=== PATIENT | female | born 1940 | race Caucasian/White ===

== ENCOUNTER 2023-02-25 09:27 | Inpatient (IN) | payer MEDICARE ==
[2023-02-25 10:10] LABS: Bacteria/HPF 4+ HPF (None Seen); Bilirubin Negative (Negative); Blood, Urine 2+ (Negative); Clarity Turbid (Clear); Glucose, Urine (Dipstick) Normal (Negative); Ketone, Urine Negative (Negative); Leukocyte 500 Leu/uL (Negative); Nitrite Negative (Negative); Protein, Urine (Dipstick) 20 mg/dL (Neg-Trace); Specific Gravity, Urine 1.011 (1.002-1.036); Squamous Epithelial 0-3 HPF (0-3); Urobilinogen Normal mg/dL (Less than 2); WBC/HPF Greater than 50 HPF (0-3)
[2023-02-25 10:17] LABS: #Eosinphils 0.2 thou/uL (0.0-0.7); #Lymphocytes 1.6 thou/uL (1.20-3.40); #Monocytes 0.5 thou/uL (0.11-0.59); #Neutrophils 6.6 thou/uL (1.40-6.50); %Basophils 0.3 % (0.0-1.0); %Eosinophils 2.4 % (0.0-10.0); %Lymphocytes 17.7 % (21.0-51.0); %Monocytes 5.7 % (0.0-10.0); Hemoglobin 11.4 g/dL (12.0-16.0); Mean Corpuscular HGB CONC 34.4 g/dL (32.0-36.0); Mean Corpuscular Hemoglobin 31.5 pg (27.0-31.0); Mean Corpuscular Volume 91.4 fl (78.0-98.0); Mean Platelet Volume 6.4 fL (7.4-10.4); Platelet Count 341 10x3/uL (130-400); RBC Distribution Width 13.4 % (11.5-14.5); Red Blood Cell (RBC) Count 3.61 mill/uL (4.20-5.40); White Blood Cell (WBC) Count 8.9 10x3/uL (4.8-10.8)
[2023-02-25 10:40] LABS: ALT (SGPT) 8 U/L (8-55); AST (SGOT) 10 U/L (5-34); Albumin 3.2 g/dL (3.4-4.8); Alkaline Phosphatase 111 U/L (40-110); Anion Gap 16 mmol/L (10-20); BUN (Urea Nitrogen) 30 mg/dL (9.8-20.1); Bilirubin, Total 0.3 mg/dL (0.2-1.2); Calc. Creatinine Clearance 0 mL/min (70-130); Carbon Dioxide 21 mmol/L (23-31); Chloride 104 mmol/L (98-107); Estimated GFR 33; Globulin 3.6 g/dL (2.4-3.5); Glucose 103 mg/dL (83-110); Potassium 3.9 mmol/L (3.5-5.1); Protein, Total 6.8 g/dL (5.8-8.1); Sodium 137 mmol/L (136-145)
[2023-02-25 11:01] LABS: CKMB 1.2 ng/mL (0-6.6)
[2023-02-25] MEDS ORDERED: methylPREDNISolone Sod Succ 40 MG VIAL ONE (11:55)
[2023-02-25] MEDS ORDERED: Cefepime 2 GM VIAL ONE (11:55)
[2023-02-25] MEDS ORDERED: Famotidine/PF 20 mg/2ml Vial ONE (11:55)
[2023-02-25] MEDS ORDERED: diphenhydrAMINE 50 MG/ML VIAL ONE (11:55)
[2023-02-25] MEDS ORDERED: Iopamidol 370 76% 100 ML VIAL ONE (12:17)
[2023-02-25] MEDS ORDERED: VANCOMYCIN 2 GRAM/500 ML BAG 2 GM in Premix Bag 1 BAG IVPB SCH (13:15)
[2023-02-25] MEDS ORDERED: Ondansetron PF 4 MG/2 ML Vial ONE (13:46)
[2023-02-25] MEDS ORDERED: Lidocaine 1% w/Epinephrine 1:100K 20 ML VIAL ONE (14:34)
[2023-02-25] MEDS ORDERED: Ondansetron PF 4 MG/2 ML Vial IVP PRN (15:16)
[2023-02-25 16:35] LABS: Troponin I 0.049 ng/mL (< 0.028)
[2023-02-25 17:19] VITALS: BMI 38.9
[2023-02-25] MEDS: Sodium Chloride 0.9% 1,000 ML IV SCH (17:41)
[2023-02-25] MEDS: HYDROcodone/Acetaminophen 10/325 mg Tablet PO PRN (18:34)
[2023-02-25] MEDS: Acetaminophen 325 MG TAB PO PRN (20:29)
[2023-02-25] MEDS: Montelukast Sodium 10 mg Tablet PO SCH (20:29)
[2023-02-25] MEDS: Latanoprost 0.005% Ophth Soln 2.5 ml Bottle EA EYE SCH (20:39)
[2023-02-26] MEDS: Acetaminophen 325 MG TAB PO PRN ×3 (00:52→17:27)
[2023-02-26] MEDS: Levothyroxine Sodium 125 MCG TAB PO SCH (05:24)
[2023-02-26] MEDS: Sodium Chloride 0.9% 1,000 ML IV SCH ×4 (05:24→23:14)
[2023-02-26 06:11] LABS: #Lymphocytes 1.1 thou/uL (1.20-3.40); #Monocytes 0.2 thou/uL (0.11-0.59); #Neutrophils 6.6 thou/uL (1.40-6.50); %Basophils 0.1 % (0.0-1.0); %Eosinophils 0.1 % (0.0-10.0); %Lymphocytes 14.3 % (21.0-51.0); %Monocytes 3.1 % (0.0-10.0); %Neutrophils 82.4 % (42.0-75.0); Hemoglobin 10.3 g/dL (12.0-16.0); Mean Corpuscular HGB CONC 31.9 g/dL (32.0-36.0); Mean Corpuscular Hemoglobin 29.6 pg (27.0-31.0); Mean Corpuscular Volume 92.9 fl (78.0-98.0); Mean Platelet Volume 6.3 fL (7.4-10.4); Platelet Count 341 10x3/uL (130-400); RBC Distribution Width 13.3 % (11.5-14.5); Red Blood Cell (RBC) Count 3.46 mill/uL (4.20-5.40)
[2023-02-26 06:33] LABS: Anion Gap 12 mmol/L (10-20); BUN (Urea Nitrogen) 28 mg/dL (9.8-20.1); Calc. Creatinine Clearance 50 mL/min (70-130); Calcium 9.6 mg/dL (7.8-10.44); Carbon Dioxide 22 mmol/L (23-31); Chloride 105 mmol/L (98-107); Estimated GFR 36; Glucose 134 mg/dL (83-110); Potassium 4.1 mmol/L (3.5-5.1); Sodium 135 mmol/L (136-145)
[2023-02-26] MEDS: Lisinopril 20 MG TAB PO SCH (08:16)
[2023-02-26] MEDS: Aspirin 81 mg Enteric Coated Tablet PO SCH (08:17)
[2023-02-26] MEDS: Vancomycin 1 GM in Premix Bag 1 BAG IVPB SCH (12:33)
[2023-02-26] MEDS: Montelukast Sodium 10 mg Tablet PO SCH (20:18)
[2023-02-26] MEDS: Latanoprost 0.005% Ophth Soln 2.5 ml Bottle EA EYE SCH (20:22)
[2023-02-27] MEDS: Levothyroxine Sodium 125 MCG TAB PO SCH (05:49)
[2023-02-27] MEDS: Sodium Chloride 0.9% 1,000 ML IV SCH ×2 (05:50→13:19)
[2023-02-27 06:28] LABS: #Eosinphils 0.4 thou/uL (0.0-0.7); #Lymphocytes 1.7 thou/uL (1.20-3.40); #Monocytes 0.6 thou/uL (0.11-0.59); #Neutrophils 5.7 thou/uL (1.40-6.50); %Basophils 0.5 % (0.0-1.0); %Eosinophils 4.4 % (0.0-10.0); %Lymphocytes 20.6 % (21.0-51.0); %Monocytes 6.7 % (0.0-10.0); %Neutrophils 67.8 % (42.0-75.0); Hemoglobin 10.5 g/dL (12.0-16.0); Mean Corpuscular HGB CONC 31.7 g/dL (32.0-36.0); Mean Corpuscular Hemoglobin 29.7 pg (27.0-31.0); Mean Corpuscular Volume 93.7 fl (78.0-98.0); Mean Platelet Volume 6.6 fL (7.4-10.4); Platelet Count 306 10x3/uL (130-400); RBC Distribution Width 13.4 % (11.5-14.5); Red Blood Cell (RBC) Count 3.53 mill/uL (4.20-5.40); White Blood Cell (WBC) Count 8.4 10x3/uL (4.8-10.8)
[2023-02-27 06:46] LABS: Anion Gap 12 mmol/L (10-20); BUN (Urea Nitrogen) 27 mg/dL (9.8-20.1); Calc. Creatinine Clearance 61 mL/min (70-130); Calcium 9.7 mg/dL (7.8-10.44); Carbon Dioxide 22 mmol/L (23-31); Chloride 109 mmol/L (98-107); Estimated GFR 46; Glucose 76 mg/dL (83-110); Potassium 3.8 mmol/L (3.5-5.1); Sodium 139 mmol/L (136-145)
[2023-02-27] MEDS: Aspirin 81 mg Enteric Coated Tablet PO SCH (08:46)
[2023-02-27] MEDS: Lisinopril 20 MG TAB PO SCH (08:47)
[2023-02-27 12:32] LABS: Vancomycin, Trough 14.9 ug/mL
[2023-02-27] MEDS: Vancomycin 1 GM in Premix Bag 1 BAG IVPB SCH (13:19)
[2023-02-27] MEDS: Acetaminophen 325 MG TAB PO PRN (14:35)
[2023-02-27] MEDS: Latanoprost 0.005% Ophth Soln 2.5 ml Bottle EA EYE SCH (20:17)
[2023-02-27] MEDS: Montelukast Sodium 10 mg Tablet PO SCH (20:17)
[2023-02-27] MEDS ORDERED: diphenhydrAMINE 25 MG CAP PO SCH (20:30)
[2023-02-28] MEDS: Acetaminophen 325 MG TAB PO PRN (02:22)
[2023-02-28] MEDS: Sodium Chloride 0.9% 1,000 ML IV SCH (02:23)
[2023-02-28] MEDS: Levothyroxine Sodium 125 MCG TAB PO SCH (05:41)
[2023-02-28 06:15] LABS: #Eosinphils 0.5 thou/uL (0.0-0.7); #Monocytes 0.6 thou/uL (0.11-0.59); %Basophils 0.4 % (0.0-1.0); %Eosinophils 6.5 % (0.0-10.0); %Monocytes 7.4 % (0.0-10.0); %Neutrophils 64.3 % (42.0-75.0); Hemoglobin 10.3 g/dL (12.0-16.0); Mean Corpuscular HGB CONC 29.9 g/dL (32.0-36.0); Mean Corpuscular Hemoglobin 27.7 pg (27.0-31.0); Mean Corpuscular Volume 92.7 fl (78.0-98.0); Mean Platelet Volume 8.5 fL (7.4-10.4); Platelet Count 269 10x3/uL (130-400); RBC Distribution Width 14.6 % (11.5-14.5); Red Blood Cell (RBC) Count 3.72 mill/uL (4.20-5.40); White Blood Cell (WBC) Count 7.7 10x3/uL (4.8-10.8)
[2023-02-28 06:35] LABS: Anion Gap 11 mmol/L (10-20); BUN (Urea Nitrogen) 18 mg/dL (9.8-20.1); Calc. Creatinine Clearance 78 mL/min (70-130); Calcium 9.5 mg/dL (7.8-10.44); Carbon Dioxide 24 mmol/L (23-31); Chloride 109 mmol/L (98-107); Estimated GFR 61; Glucose 77 mg/dL (83-110); Potassium 3.8 mmol/L (3.5-5.1); Sodium 140 mmol/L (136-145)
[2023-02-28] MEDS: Lisinopril 20 MG TAB PO SCH (08:34)
[2023-02-28] MEDS: Aspirin 81 mg Enteric Coated Tablet PO SCH (08:34)
[2023-02-28] MEDS ORDERED: Vancomycin 1 GM in Premix Bag 1 BAG IVPB SCH (09:00)
[2023-02-28] MEDS: Vancomycin 1 GM in Premix Bag 1 BAG IVPB SCH (13:00)
[2023-02-28] MEDS: Latanoprost 0.005% Ophth Soln 2.5 ml Bottle EA EYE SCH (21:29)
[2023-02-28] MEDS: Montelukast Sodium 10 mg Tablet PO SCH (21:29)
[2023-02-28] MEDS: HYDROcodone/Acetaminophen 5/325 mg Tablet PO PRN (22:25)
[2023-03-01] MEDS: Levothyroxine Sodium 125 MCG TAB PO SCH (05:57)
[2023-03-01 06:25] LABS: #Eosinphils 0.3 thou/uL (0.0-0.7); #Monocytes 0.7 thou/uL (0.11-0.59); #Neutrophils 6.8 thou/uL (1.40-6.50); %Basophils 0.4 % (0.0-1.0); %Lymphocytes 18.8 % (21.0-51.0); %Monocytes 6.9 % (0.0-10.0); %Neutrophils 70.5 % (42.0-75.0); Hemoglobin 10.3 g/dL (12.0-16.0); Mean Corpuscular HGB CONC 30.7 g/dL (32.0-36.0); Mean Corpuscular Hemoglobin 28.2 pg (27.0-31.0); Mean Corpuscular Volume 91.8 fl (78.0-98.0); Mean Platelet Volume 8.6 fL (7.4-10.4); Platelet Count 276 10x3/uL (130-400); RBC Distribution Width 14.6 % (11.5-14.5); Red Blood Cell (RBC) Count 3.65 mill/uL (4.20-5.40); White Blood Cell (WBC) Count 9.7 10x3/uL (4.8-10.8)
[2023-03-01 06:54] LABS: Anion Gap 13 mmol/L (10-20); BUN (Urea Nitrogen) 16 mg/dL (9.8-20.1); Calc. Creatinine Clearance 77 mL/min (70-130); Calcium 9.6 mg/dL (7.8-10.44); Carbon Dioxide 23 mmol/L (23-31); Chloride 104 mmol/L (98-107); Estimated GFR 60; Glucose 107 mg/dL (83-110); Potassium 3.7 mmol/L (3.5-5.1); Sodium 136 mmol/L (136-145)
[2023-03-01] MEDS: Aspirin 81 mg Enteric Coated Tablet PO SCH (09:41)
[2023-03-01] MEDS: Lisinopril 20 MG TAB PO SCH (09:41)
[2023-03-01] MEDS: HYDROcodone/Acetaminophen 5/325 mg Tablet PO PRN (09:42)
[2023-03-01] MEDS: Vancomycin 1 GM in Premix Bag 1 BAG IVPB SCH (13:59)
[2023-03-01] MEDS: HYDROcodone/Acetaminophen 10/325 mg Tablet PO PRN ×2 (18:37→23:04)
[2023-03-01] MEDS: Montelukast Sodium 10 mg Tablet PO SCH (21:52)
[2023-03-01] MEDS: Latanoprost 0.005% Ophth Soln 2.5 ml Bottle EA EYE SCH (21:54)
[2023-03-02] MEDS: Levothyroxine Sodium 125 MCG TAB PO SCH (05:32)
[2023-03-02] MEDS: Aspirin 81 mg Enteric Coated Tablet PO SCH (09:02)
[2023-03-02] MEDS: Lisinopril 20 MG TAB PO SCH (09:02)
[2023-03-02] MEDS: Vancomycin 1 GM in Premix Bag 1 BAG IVPB SCH (12:22)
[2023-03-02 13:50] LABS: Vancomycin, Trough 17.9 ug/mL
[2023-03-02] MEDS: Montelukast Sodium 10 mg Tablet PO SCH (20:33)
[2023-03-02] MEDS: Docusate 100 MG CAP PO SCH (20:33)
[2023-03-02] MEDS: Latanoprost 0.005% Ophth Soln 2.5 ml Bottle EA EYE SCH (20:42)
[2023-03-03] MEDS: HYDROcodone/Acetaminophen 10/325 mg Tablet PO PRN (04:46)
[2023-03-03] MEDS: Levothyroxine Sodium 125 MCG TAB PO SCH (04:47)
[2023-03-03] MEDS: Lisinopril 20 MG TAB PO SCH (08:36)
[2023-03-03] MEDS: Docusate 100 MG CAP PO SCH ×2 (08:37→22:02)
[2023-03-03] MEDS: Aspirin 81 mg Enteric Coated Tablet PO SCH (08:37)
[2023-03-03] MEDS: Vancomycin 1 GM in Premix Bag 1 BAG IVPB SCH (12:32)
[2023-03-03] MEDS ORDERED: Furosemide 20 MG/2 ML VIAL SLOW IVP SCH (12:45)
[2023-03-03] MEDS: Montelukast Sodium 10 mg Tablet PO SCH (22:02)
[2023-03-03] MEDS: Latanoprost 0.005% Ophth Soln 2.5 ml Bottle EA EYE SCH (22:02)
[2023-03-04] MEDS: Levothyroxine Sodium 125 MCG TAB PO SCH (06:53)
[2023-03-04] MEDS: Aspirin 81 mg Enteric Coated Tablet PO SCH (08:14)
[2023-03-04] MEDS: Lisinopril 20 MG TAB PO SCH (08:14)
[2023-03-04] MEDS: Docusate 100 MG CAP PO SCH ×2 (08:14→23:01)
[2023-03-04] MEDS: Vancomycin 1 GM in Premix Bag 1 BAG IVPB SCH (13:07)
[2023-03-04] MEDS: Montelukast Sodium 10 mg Tablet PO SCH (23:01)
[2023-03-04] MEDS: Latanoprost 0.005% Ophth Soln 2.5 ml Bottle EA EYE SCH (23:01)
[2023-03-05] MEDS: Levothyroxine Sodium 125 MCG TAB PO SCH (06:44)
[2023-03-05 07:38] LABS: #Eosinphils 0.4 thou/uL (0.0-0.7); #Monocytes 0.7 thou/uL (0.11-0.59); %Basophils 0.3 % (0.0-1.0); %Eosinophils 4.8 % (0.0-10.0); %Lymphocytes 16.4 % (21.0-51.0); Mean Corpuscular Hemoglobin 28.2 pg (27.0-31.0); Mean Corpuscular Volume 90.9 fl (78.0-98.0); Mean Platelet Volume 9.2 fL (7.4-10.4); Platelet Count 262 10x3/uL (130-400); RBC Distribution Width 14.8 % (11.5-14.5); Red Blood Cell (RBC) Count 3.19 mill/uL (4.20-5.40); White Blood Cell (WBC) Count 8.6 10x3/uL (4.8-10.8)
[2023-03-05 07:44] LABS: Anion Gap 13 mmol/L (10-20); BUN (Urea Nitrogen) 23 mg/dL (9.8-20.1); CK (CPK) 13 U/L (29-168); Calc. Creatinine Clearance 67 mL/min (70-130); Calcium 9.7 mg/dL (7.8-10.44); Carbon Dioxide 27 mmol/L (23-31); Chloride 101 mmol/L (98-107); Estimated GFR 51; Glucose 89 mg/dL (83-110); Potassium 3.5 mmol/L (3.5-5.1); Sodium 137 mmol/L (136-145)
[2023-03-05] MEDS: Docusate 100 MG CAP PO SCH ×2 (09:01→20:41)
[2023-03-05] MEDS: Lisinopril 20 MG TAB PO SCH (09:01)
[2023-03-05] MEDS: Aspirin 81 mg Enteric Coated Tablet PO SCH (09:02)
[2023-03-05] MEDS: Vancomycin 1 GM in Premix Bag 1 BAG IVPB SCH (12:18)
[2023-03-05 13:00] LABS: Vancomycin, Trough 19.6 ug/mL
[2023-03-05] MEDS: Montelukast Sodium 10 mg Tablet PO SCH (20:41)
[2023-03-05] MEDS: Latanoprost 0.005% Ophth Soln 2.5 ml Bottle EA EYE SCH (20:42)
[2023-03-05] MEDS: HYDROcodone/Acetaminophen 10/325 mg Tablet PO PRN (20:44)
[2023-03-06 01:40] VITALS: TEMP 98
[2023-03-06] MEDS: Levothyroxine Sodium 125 MCG TAB PO SCH (06:07)
[2023-03-06 07:34] VITALS: BP 131/77
[2023-03-06] MEDS: Lisinopril 20 MG TAB PO SCH (08:51)
[2023-03-06] MEDS: Aspirin 81 mg Enteric Coated Tablet PO SCH (08:51)
[2023-03-06] MEDS: Docusate 100 MG CAP PO SCH (08:52)
[2023-03-06] MEDS: Vancomycin 1 GM in Premix Bag 1 BAG IVPB SCH (12:48)
[2023-03-06] MEDS ORDERED: Nystatin Powder 15 GM BOT TOP SCH (21:00)
== END 2023-03-06 14:35 | disposition swing bed (61) | DRG 603 ==
LOC: ERS 09:27 → T4-B 15:16
PROVIDERS: ADMIT Internal Medicine Critical Care Medicine; ATTEND Internal Medicine
PROC: 0J9B0ZZ Drainage of Perineum Subcutaneous Tissue and Fascia, Open Approach (ICD-10-PCS; principal; 2023-02-25)
PROC: 02HV33Z Insertion of Infusion Device into Superior Vena Cava, Percutaneous Approach (ICD-10-PCS; 2023-03-03)
PROC: B5181ZA Fluoroscopy of Superior Vena Cava using Low Osmolar Contrast, Guidance (ICD-10-PCS; 2023-03-03)
PROC: B548ZZA Ultrasonography of Superior Vena Cava, Guidance (ICD-10-PCS; 2023-03-03)
DX: L02.214 Cutaneous abscess of groin (principal); R78.81 Bacteremia; N17.9 Acute kidney failure, unspecified; I48.20 Chronic atrial fibrillation, unspecified; N13.6 Pyonephrosis; R53.81 Other malaise; B95.62 Methicillin resistant Staphylococcus aureus infection as the cause of diseases classified elsewhere; E03.9 Hypothyroidism, unspecified; Z79.82 Long term (current) use of aspirin; Z79.890 Hormone replacement therapy; Z79.899 Other long term (current) drug therapy; Z91.041 Radiographic dye allergy status; Z88.0 Allergy status to penicillin; Z88.2 Allergy status to sulfonamides; Z79.52 Long term (current) use of systemic steroids; E66.9 Obesity, unspecified; Z68.38 Body mass index [BMI] 38.0-38.9, adult; L03.314 Cellulitis of groin; I12.9 Hypertensive chronic kidney disease with stage 1 through stage 4 chronic kidney disease, or unspecified chronic kidney disease; N18.30 Chronic kidney disease, stage 3 unspecified
CPT/HCPCS: 36415; 36416; 36569; 51701; 56405; 71045; 74177; 76770; 80048; 80053; 80202; 81003; 81015; 82550; 82553; 83605; 84484; 84550; 85025; 87040; 87077; 87086; 87149; 87186; 93005; 93306; 96365; 96366; 96367; 96375; 97139; C1751; J0692; J1200; J1650; J1940; J1956; J2405; J2920; J3370; J3370-JW; J7050; Q9967; S0028

== ENCOUNTER 2023-07-01 21:17 | Observation (INO) | payer MEDICARE ==
[2023-07-01 21:51] LABS: #Eosinphils 0.4 thou/uL (0.0-0.7); #Monocytes 0.9 thou/uL (0.11-0.59); #Neutrophils 7.3 thou/uL (1.40-6.50); %Basophils 0.4 % (0.0-1.0); %Eosinophils 3.7 % (0.0-10.0); %Monocytes 8.7 % (0.0-10.0); %Neutrophils 68.9 % (42.0-75.0); Hematocrit 30.2 % (36.0-47.0); Hemoglobin 9.5 g/dL (12.0-16.0); Mean Corpuscular HGB CONC 31.5 g/dL (32.0-36.0); Mean Corpuscular Hemoglobin 28.4 pg (27.0-31.0); Mean Corpuscular Volume 90.4 fl (78.0-98.0); Mean Platelet Volume 9.5 fL (7.4-10.4); Platelet Count 268 10x3/uL (130-400); Red Blood Cell (RBC) Count 3.34 mill/uL (4.20-5.40); White Blood Cell (WBC) Count 10.6 10x3/uL (4.8-10.8)
[2023-07-01 22:14] LABS: ALT (SGPT) 10 U/L (8-55); AST (SGOT) 13 U/L (5-34); Albumin 3.5 g/dL (3.4-4.8); Alkaline Phosphatase 132 U/L (40-110); Anion Gap 12 mmol/L (10-20); BUN (Urea Nitrogen) 34 mg/dL (9.8-20.1); Bilirubin, Total 0.2 mg/dL (0.2-1.2); Calc. Creatinine Clearance 0 mL/min (70-130); Calcium 10.7 mg/dL (7.8-10.44); Carbon Dioxide 25 mmol/L (23-31); Chloride 102 mmol/L (98-107); Estimated GFR 39; Globulin 3.8 g/dL (2.4-3.5); Glucose 112 mg/dL (83-110); Potassium 4.1 mmol/L (3.5-5.1); Protein, Total 7.3 g/dL (5.8-8.1); Sodium 135 mmol/L (136-145)
[2023-07-01 22:36] LABS: Troponin I 0.067 ng/mL (< 0.028)
[2023-07-02] MEDS ORDERED: Ondansetron ODT 4 MG TAB PO PRN (02:02)
[2023-07-02] MEDS ORDERED: Senokot S 8.6-50 MG TAB PO PRN (02:02)
[2023-07-02] MEDS ORDERED: Albuterol 200 PUFF (6.7GM INHALER) INH PRN (02:03)
[2023-07-02] MEDS ORDERED: Bisacodyl 10 MG SUPP PR PRN (02:03)
[2023-07-02] MEDS ORDERED: Melatonin 3 MG TAB PO PRN (02:03)
[2023-07-02 02:44] LABS: #Eosinphils 0.4 thou/uL (0.0-0.7); #Monocytes 0.9 thou/uL (0.11-0.59); #Neutrophils 7.1 thou/uL (1.40-6.50); %Basophils 0.3 % (0.0-1.0); %Eosinophils 3.4 % (0.0-10.0); %Lymphocytes 20.5 % (21.0-51.0); %Monocytes 8.6 % (0.0-10.0); %Neutrophils 66.8 % (42.0-75.0); Hematocrit 27.4 % (36.0-47.0); Hemoglobin 8.5 g/dL (12.0-16.0); Mean Corpuscular Hemoglobin 28.8 pg (27.0-31.0); Mean Corpuscular Volume 92.9 fl (78.0-98.0); Mean Platelet Volume 9.2 fL (7.4-10.4); Platelet Count 251 10x3/uL (130-400); RBC Distribution Width 16.2 % (11.5-14.5); Red Blood Cell (RBC) Count 2.95 mill/uL (4.20-5.40); White Blood Cell (WBC) Count 10.6 10x3/uL (4.8-10.8)
[2023-07-02 03:17] LABS: Troponin I 0.048 ng/mL (< 0.028)
[2023-07-02 03:33] VITALS: BMI 39.2
[2023-07-02 04:07] LABS: Anion Gap 14 mmol/L (10-20); BUN (Urea Nitrogen) 35 mg/dL (9.8-20.1); Calc. Creatinine Clearance 57 mL/min (70-130); Calcium 10.4 mg/dL (7.8-10.44); Carbon Dioxide 23 mmol/L (23-31); Chloride 105 mmol/L (98-107); Estimated GFR 43; Glucose 100 mg/dL (83-110); Potassium 3.8 mmol/L (3.5-5.1); Sodium 138 mmol/L (136-145)
[2023-07-02 04:41] LABS: Troponin I 0.058 ng/mL (< 0.028)
[2023-07-02] MEDS ORDERED: Levothyroxine Sodium 125 MCG TAB PO SCH (06:00)
[2023-07-02] MEDS ORDERED: Metoprolol Tartrate 25 MG TAB PO SCH (09:00)
[2023-07-02] MEDS ORDERED: Famotidine/PF 20 mg/2ml Vial SLOW IVP SCH (09:00)
[2023-07-02] MEDS ORDERED: Multivit, Therapeutic 1 TAB PO SCH (09:00)
[2023-07-02] MEDS: Docusate 100 MG CAP PO SCH ×2 (10:03→21:02)
[2023-07-02] MEDS ORDERED: Rivaroxaban 15 MG TAB PO SCH (18:00)
[2023-07-02] MEDS ORDERED: Montelukast Sodium 10 mg Tablet PO SCH (21:00)
[2023-07-02 21:04] VITALS: BP 131/66; TEMP 97.7
[2023-07-03] MEDS ORDERED: dilTIAZem CD 120 MG CAP PO SCH ×2 (09:00)
== END 2023-07-02 21:45 ==
LOC: ERS 21:17 → INTOOBSV 07-02 02:00 → 2NO 07-02 02:00
PROVIDERS: ADMIT Student in an Organized Health Care Education/Training Program; ATTEND Hospitalist
DX: R53.1 Weakness (principal); I12.9 Hypertensive chronic kidney disease with stage 1 through stage 4 chronic kidney disease, or unspecified chronic kidney disease; N18.9 Chronic kidney disease, unspecified; I48.91 Unspecified atrial fibrillation; I5A Non-ischemic myocardial injury (non-traumatic); E66.01 Morbid (severe) obesity due to excess calories; Z68.39 Body mass index [BMI] 39.0-39.9, adult; Z88.0 Allergy status to penicillin; Z88.1 Allergy status to other antibiotic agents; Z88.2 Allergy status to sulfonamides; Z91.041 Radiographic dye allergy status; Z79.01 Long term (current) use of anticoagulants; Z79.899 Other long term (current) drug therapy
CPT/HCPCS: 71045; 80048; 83880; 84484 ×3; 85025; 85379; 93005; 96374; 97116; G0378 ×2; 36415; 80053; 84443; S0028

== ENCOUNTER 2023-07-21 15:16 | Inpatient (IN) | payer MEDICARE ==
[2023-07-21 16:34] LABS: Bacteria/HPF None Seen HPF (None Seen); Bilirubin Negative (Negative); Blood, Urine Negative (Negative); CAUTI Indications for Culture Dysuria,urgency,freq; Clarity Clear (Clear); Glucose, Urine (Dipstick) Normal (Negative); Ketone, Urine Negative (Negative); Leukocyte 75 Leu/uL (Negative); Nitrite Negative (Negative); Protein, Urine (Dipstick) Negative (Neg-Trace); RBC/HPF 0-3 HPF (0-3); Specific Gravity, Urine 1.013 (1.002-1.036); Squamous Epithelial 0-3 HPF (0-3); Urine Culture Reflex No No; Urobilinogen Normal mg/dL (Less than 2); WBC/HPF 0-3 HPF (0-3)
[2023-07-21 17:04] LABS: #Eosinphils 0.3 thou/uL (0.0-0.7); #Monocytes 0.6 thou/uL (0.11-0.59); #Neutrophils 4.3 thou/uL (1.40-6.50); %Basophils 0.5 % (0.0-1.0); %Eosinophils 4.6 % (0.0-10.0); %Lymphocytes 28.8 % (21.0-51.0); %Monocytes 7.6 % (0.0-10.0); %Neutrophils 58.2 % (42.0-75.0); Hemoglobin 9.9 g/dL (12.0-16.0); Mean Corpuscular HGB CONC 30.9 g/dL (32.0-36.0); Mean Corpuscular Hemoglobin 28.8 pg (27.0-31.0); Mean Platelet Volume 9.1 fL (7.4-10.4); Platelet Count 274 10x3/uL (130-400); RBC Distribution Width 16.4 % (11.5-14.5); Red Blood Cell (RBC) Count 3.44 mill/uL (4.20-5.40); White Blood Cell (WBC) Count 7.4 10x3/uL (4.8-10.8)
[2023-07-21 17:32] LABS: Troponin I 0.044 ng/mL (< 0.028)
[2023-07-21 17:34] LABS: ALT (SGPT) 14 U/L (8-55); AST (SGOT) 15 U/L (5-34); Albumin 3.6 g/dL (3.4-4.8); Alkaline Phosphatase 127 U/L (40-110); Anion Gap 14 mmol/L (10-20); BUN (Urea Nitrogen) 28 mg/dL (9.8-20.1); Bilirubin, Total Less than 0.2 mg/dL (0.2-1.2); CK (CPK) 29 U/L (29-168); CRP (Inflammatory) 2.35 mg/dL (= or < 0.5); Calc. Creatinine Clearance 0 mL/min (70-130); Calcium 10.7 mg/dL (7.8-10.44); Carbon Dioxide 26 mmol/L (23-31); Chloride 103 mmol/L (98-107); Estimated GFR 40; Globulin 3.5 g/dL (2.4-3.5); Glucose 101 mg/dL (83-110); Lipase 17 U/L (8-78); Potassium 4.2 mmol/L (3.5-5.1); Protein, Total 7.1 g/dL (5.8-8.1); Sodium 139 mmol/L (136-145)
[2023-07-21] MEDS ORDERED: Furosemide 40 MG/4 ML VIAL ONE (18:28)
[2023-07-21] MEDS ORDERED: Acetaminophen 325 MG TAB PO PRN (20:10)
[2023-07-21] MEDS ORDERED: Ondansetron ODT 4 MG TAB PO PRN (20:10)
[2023-07-21] MEDS ORDERED: Ondansetron PF 4 MG/2 ML Vial IVP PRN (20:10)
[2023-07-21] MEDS ORDERED: Acetaminophen 650 MG Suppository PR PRN (20:10)
[2023-07-21 22:19] LABS: Troponin I 0.061 ng/mL (< 0.028)
[2023-07-21 23:20] VITALS: BMI 39.8
[2023-07-22 00:24] LABS: Troponin I 0.054 ng/mL (< 0.028)
[2023-07-22 04:21] LABS: #Eosinphils 0.4 thou/uL (0.0-0.7); #Monocytes 0.6 thou/uL (0.11-0.59); #Neutrophils 4.7 thou/uL (1.40-6.50); %Basophils 0.5 % (0.0-1.0); %Eosinophils 4.8 % (0.0-10.0); %Lymphocytes 25.1 % (21.0-51.0); %Monocytes 7.8 % (0.0-10.0); %Neutrophils 61.5 % (42.0-75.0); Hematocrit 32.9 % (36.0-47.0); Hemoglobin 10.2 g/dL (12.0-16.0); Mean Corpuscular Hemoglobin 28.3 pg (27.0-31.0); Mean Corpuscular Volume 91.1 fl (78.0-98.0); Mean Platelet Volume 9.3 fL (7.4-10.4); Platelet Count 273 10x3/uL (130-400); RBC Distribution Width 16.1 % (11.5-14.5); Red Blood Cell (RBC) Count 3.61 mill/uL (4.20-5.40); White Blood Cell (WBC) Count 7.7 10x3/uL (4.8-10.8)
[2023-07-22 04:45] LABS: Iron 24 ug/dL (50-170); Iron Binding Capacity, Total 281 mcg/dL (265-497)
[2023-07-22 04:47] LABS: Anion Gap 14 mmol/L (10-20); BUN (Urea Nitrogen) 25 mg/dL (9.8-20.1); Calc. Creatinine Clearance 56 mL/min (70-130); Calcium 10.7 mg/dL (7.8-10.44); Carbon Dioxide 30 mmol/L (23-31); Chloride 99 mmol/L (98-107); Estimated GFR 45; Glucose 88 mg/dL (83-110); Iron 23 ug/dL (50-170); Magnesium 1.9 mg/dL (1.6-2.6); Potassium 3.6 mmol/L (3.5-5.1); Sodium 139 mmol/L (136-145)
[2023-07-22 04:51] LABS: Iron Binding Capacity, Total 283 mcg/dL (265-497)
[2023-07-22] MEDS ORDERED: Furosemide 40 MG/4 ML VIAL SLOW IVP SCH (09:00)
[2023-07-22] MEDS ORDERED: Melatonin 3 MG TAB PO PRN (14:45)
[2023-07-22] MEDS: Rivaroxaban 15 MG TAB PO SCH (18:00)
[2023-07-22] MEDS: Carvedilol 3.125 MG TAB PO SCH (20:42)
[2023-07-22] MEDS: Docusate 100 MG CAP PO SCH (20:43)
[2023-07-22] MEDS: Latanoprost 0.005% Ophth Soln 2.5 ml Bottle EA EYE SCH (20:43)
[2023-07-22] MEDS: Montelukast Sodium 10 mg Tablet PO SCH (20:43)
[2023-07-22] MEDS: Ferrous Sulfate 325 MG TAB PO SCH (20:43)
[2023-07-23] MEDS: Levothyroxine Sodium 25 MCG TAB PO SCH (06:23)
[2023-07-23] MEDS: Docusate 100 MG CAP PO SCH ×2 (09:02→20:51)
[2023-07-23] MEDS: Ferrous Sulfate 325 MG TAB PO SCH ×2 (09:03→20:50)
[2023-07-23] MEDS: Cholecalciferol 1,000 UNITS (25 MCG) TAB PO SCH (09:04)
[2023-07-23] MEDS: Furosemide 40 MG TAB PO SCH (09:04)
[2023-07-23] MEDS: Potassium Chloride 20 MEQ TAB PO SCH (09:06)
[2023-07-23] MEDS: dilTIAZem CD 120 MG CAP PO SCH (09:06)
[2023-07-23] MEDS: Carvedilol 3.125 MG TAB PO SCH ×2 (09:06→20:50)
[2023-07-23] MEDS: Escitalopram Oxalate 10 mg Tablet PO SCH (09:07)
[2023-07-23] MEDS: Empagliflozin 10 MG TAB PO SCH (09:13)
[2023-07-23] MEDS: Rivaroxaban 15 MG TAB PO SCH (14:26)
[2023-07-23] MEDS: Montelukast Sodium 10 mg Tablet PO SCH (20:51)
[2023-07-23] MEDS: Latanoprost 0.005% Ophth Soln 2.5 ml Bottle EA EYE SCH (20:51)
[2023-07-24] MEDS: Levothyroxine Sodium 25 MCG TAB PO SCH (04:31)
[2023-07-24 08:41] LABS: #Eosinphils 0.4 thou/uL (0.0-0.7); #Monocytes 0.5 thou/uL (0.11-0.59); #Neutrophils 4.4 thou/uL (1.40-6.50); %Basophils 0.4 % (0.0-1.0); %Eosinophils 5.4 % (0.0-10.0); %Lymphocytes 22.7 % (21.0-51.0); %Monocytes 6.6 % (0.0-10.0); %Neutrophils 64.6 % (42.0-75.0); Hematocrit 33.9 % (36.0-47.0); Hemoglobin 10.6 g/dL (12.0-16.0); Mean Corpuscular HGB CONC 31.3 g/dL (32.0-36.0); Mean Corpuscular Hemoglobin 28.8 pg (27.0-31.0); Mean Corpuscular Volume 92.1 fl (78.0-98.0); Platelet Count 248 10x3/uL (130-400); RBC Distribution Width 15.8 % (11.5-14.5); Red Blood Cell (RBC) Count 3.68 mill/uL (4.20-5.40); White Blood Cell (WBC) Count 6.9 10x3/uL (4.8-10.8)
[2023-07-24 09:13] LABS: Anion Gap 13 mmol/L (10-20); BUN (Urea Nitrogen) 29 mg/dL (9.8-20.1); Calc. Creatinine Clearance 52 mL/min (70-130); Calcium 10.5 mg/dL (7.8-10.44); Carbon Dioxide 30 mmol/L (23-31); Chloride 97 mmol/L (98-107); Estimated GFR 42; Glucose 116 mg/dL (83-110); Potassium 3.5 mmol/L (3.5-5.1); Sodium 136 mmol/L (136-145)
[2023-07-24] MEDS: Docusate 100 MG CAP PO SCH ×2 (09:29→20:46)
[2023-07-24] MEDS: Ferrous Sulfate 325 MG TAB PO SCH ×2 (09:29→20:45)
[2023-07-24] MEDS: Potassium Chloride 20 MEQ TAB PO SCH (09:30)
[2023-07-24] MEDS: Escitalopram Oxalate 10 mg Tablet PO SCH (09:30)
[2023-07-24] MEDS: Cholecalciferol 1,000 UNITS (25 MCG) TAB PO SCH (09:30)
[2023-07-24] MEDS: Furosemide 40 MG TAB PO SCH (09:30)
[2023-07-24] MEDS: Empagliflozin 10 MG TAB PO SCH (09:30)
[2023-07-24] MEDS: Carvedilol 3.125 MG TAB PO SCH ×2 (09:31→20:46)
[2023-07-24] MEDS: dilTIAZem CD 120 MG CAP PO SCH (09:31)
[2023-07-24] MEDS: Rivaroxaban 15 MG TAB PO SCH (18:20)
[2023-07-24] MEDS: Latanoprost 0.005% Ophth Soln 2.5 ml Bottle EA EYE SCH (20:45)
[2023-07-24] MEDS: Montelukast Sodium 10 mg Tablet PO SCH (20:46)
[2023-07-24] MEDS: Melatonin 3 MG TAB PO SCH (20:46)
[2023-07-25] MEDS: Levothyroxine Sodium 25 MCG TAB PO SCH (05:30)
[2023-07-25 07:27] LABS: Anion Gap 12 mmol/L (10-20); BUN (Urea Nitrogen) 30 mg/dL (9.8-20.1); Calc. Creatinine Clearance 50 mL/min (70-130); Calcium 10.4 mg/dL (7.8-10.44); Carbon Dioxide 31 mmol/L (23-31); Chloride 97 mmol/L (98-107); Estimated GFR 40; Glucose 101 mg/dL (83-110); Potassium 3.8 mmol/L (3.5-5.1); Sodium 136 mmol/L (136-145)
[2023-07-25] MEDS: Cholecalciferol 1,000 UNITS (25 MCG) TAB PO SCH (09:17)
[2023-07-25] MEDS: Docusate 100 MG CAP PO SCH ×2 (09:18→20:56)
[2023-07-25] MEDS: dilTIAZem CD 120 MG CAP PO SCH (09:18)
[2023-07-25] MEDS: Ferrous Sulfate 325 MG TAB PO SCH ×2 (09:18→20:56)
[2023-07-25] MEDS: Furosemide 40 MG TAB PO SCH (09:19)
[2023-07-25] MEDS: Escitalopram Oxalate 10 mg Tablet PO SCH (09:19)
[2023-07-25] MEDS: Carvedilol 3.125 MG TAB PO SCH ×2 (09:19→20:56)
[2023-07-25] MEDS: Potassium Chloride 20 MEQ TAB PO SCH (09:20)
[2023-07-25] MEDS: Empagliflozin 10 MG TAB PO SCH (09:20)
[2023-07-25] MEDS: Rivaroxaban 15 MG TAB PO SCH (17:14)
[2023-07-25] MEDS: Montelukast Sodium 10 mg Tablet PO SCH (20:56)
[2023-07-25] MEDS: Melatonin 3 MG TAB PO SCH (20:56)
[2023-07-25] MEDS: Latanoprost 0.005% Ophth Soln 2.5 ml Bottle EA EYE SCH (20:58)
[2023-07-26] MEDS: Levothyroxine Sodium 25 MCG TAB PO SCH (05:36)
[2023-07-26] MEDS: dilTIAZem CD 120 MG CAP PO SCH (08:53)
[2023-07-26] MEDS: Potassium Chloride 20 MEQ TAB PO SCH (08:54)
[2023-07-26] MEDS: Cholecalciferol 1,000 UNITS (25 MCG) TAB PO SCH (08:54)
[2023-07-26] MEDS: Empagliflozin 10 MG TAB PO SCH (08:55)
[2023-07-26] MEDS: Escitalopram Oxalate 10 mg Tablet PO SCH (08:55)
[2023-07-26] MEDS: Ferrous Sulfate 325 MG TAB PO SCH ×2 (08:55→20:26)
[2023-07-26] MEDS: Furosemide 40 MG TAB PO SCH (08:56)
[2023-07-26] MEDS: Carvedilol 3.125 MG TAB PO SCH ×2 (08:56→20:26)
[2023-07-26] MEDS: Docusate 100 MG CAP PO SCH ×2 (08:56→20:26)
[2023-07-26] MEDS: Rivaroxaban 15 MG TAB PO SCH (18:37)
[2023-07-26] MEDS: Melatonin 3 MG TAB PO SCH (20:26)
[2023-07-26] MEDS: Montelukast Sodium 10 mg Tablet PO SCH (20:26)
[2023-07-26] MEDS: Latanoprost 0.005% Ophth Soln 2.5 ml Bottle EA EYE SCH (20:28)
[2023-07-27 04:57] LABS: Anion Gap 12 mmol/L (10-20); BUN (Urea Nitrogen) 35 mg/dL (9.8-20.1); Calc. Creatinine Clearance 43 mL/min (70-130); Calcium 10.5 mg/dL (7.8-10.44); Carbon Dioxide 31 mmol/L (23-31); Chloride 96 mmol/L (98-107); Estimated GFR 34; Glucose 97 mg/dL (83-110); Potassium 3.8 mmol/L (3.5-5.1); Sodium 135 mmol/L (136-145)
[2023-07-27] MEDS: Levothyroxine Sodium 25 MCG TAB PO SCH (05:30)
[2023-07-27] MEDS: Carvedilol 3.125 MG TAB PO SCH ×2 (08:47→20:58)
[2023-07-27] MEDS: Empagliflozin 10 MG TAB PO SCH (08:48)
[2023-07-27] MEDS: Ferrous Sulfate 325 MG TAB PO SCH ×2 (08:48→21:11)
[2023-07-27] MEDS: Escitalopram Oxalate 10 mg Tablet PO SCH (08:48)
[2023-07-27] MEDS: Potassium Chloride 20 MEQ TAB PO SCH (08:48)
[2023-07-27] MEDS: Docusate 100 MG CAP PO SCH ×2 (08:48→20:58)
[2023-07-27] MEDS: dilTIAZem CD 120 MG CAP PO SCH (08:48)
[2023-07-27] MEDS: Furosemide 40 MG TAB PO SCH (08:48)
[2023-07-27] MEDS: Cholecalciferol 1,000 UNITS (25 MCG) TAB PO SCH (08:48)
[2023-07-27] MEDS: Rivaroxaban 15 MG TAB PO SCH (18:13)
[2023-07-27] MEDS: Latanoprost 0.005% Ophth Soln 2.5 ml Bottle EA EYE SCH (20:57)
[2023-07-27] MEDS: Montelukast Sodium 10 mg Tablet PO SCH (20:58)
[2023-07-27] MEDS: Melatonin 3 MG TAB PO SCH (20:58)
[2023-07-28] MEDS: Levothyroxine Sodium 25 MCG TAB PO SCH (05:26)
[2023-07-28] MEDS: Potassium Chloride 20 MEQ TAB PO SCH (08:47)
[2023-07-28] MEDS: Docusate 100 MG CAP PO SCH (08:47)
[2023-07-28] MEDS: dilTIAZem CD 120 MG CAP PO SCH (08:47)
[2023-07-28] MEDS: Ferrous Sulfate 325 MG TAB PO SCH (08:48)
[2023-07-28] MEDS: Cholecalciferol 1,000 UNITS (25 MCG) TAB PO SCH (08:48)
[2023-07-28] MEDS: Carvedilol 3.125 MG TAB PO SCH (08:48)
[2023-07-28] MEDS: Empagliflozin 10 MG TAB PO SCH (08:48)
[2023-07-28] MEDS: Furosemide 40 MG TAB PO SCH (08:48)
[2023-07-28] MEDS: Escitalopram Oxalate 10 mg Tablet PO SCH (08:48)
[2023-07-28 17:03] VITALS: BP 139/83; TEMP 98.5
[2023-07-28] MEDS: Rivaroxaban 15 MG TAB PO SCH (17:15)
== END 2023-07-28 18:58 | DRG 291 ==
LOC: ERS 15:16 → 2NO 19:25 → T4-A 07-27 09:28
PROVIDERS: ADMIT Student in an Organized Health Care Education/Training Program; ATTEND Internal Medicine Critical Care Medicine
DX: I13.0 Hypertensive heart and chronic kidney disease with heart failure and stage 1 through stage 4 chronic kidney disease, or unspecified chronic kidney disease (principal); I50.33 Acute on chronic diastolic (congestive) heart failure; E03.9 Hypothyroidism, unspecified; J45.909 Unspecified asthma, uncomplicated; M79.89 Other specified soft tissue disorders; D64.9 Anemia, unspecified; R77.8 Other specified abnormalities of plasma proteins; I48.0 Paroxysmal atrial fibrillation; F39 Unspecified mood [affective] disorder; H40.9 Unspecified glaucoma; G47.00 Insomnia, unspecified; N18.30 Chronic kidney disease, stage 3 unspecified; D50.9 Iron deficiency anemia, unspecified; E83.52 Hypercalcemia; F32.9 Major depressive disorder, single episode, unspecified; G47.33 Obstructive sleep apnea (adult) (pediatric); Z88.0 Allergy status to penicillin; Z88.1 Allergy status to other antibiotic agents; Z88.2 Allergy status to sulfonamides; Z88.8 Allergy status to other drugs, medicaments and biological substances; Z79.899 Other long term (current) drug therapy; Z79.890 Hormone replacement therapy; Z90.710 Acquired absence of both cervix and uterus; Z98.890 Other specified postprocedural states
CPT/HCPCS: 36415; 36416; 71045; 80048; 80053; 81001; 82306; 82550; 82728; 83540; 83550; 83605; 83690; 83735; 83880; 83970; 84484; 85025; 86140; 93005; 93010; 96374; J1940; Q0162

== ENCOUNTER 2025-10-21 11:47 | Emergency (ER) | payer MEDICARE, MEDICAID ==
[2025-10-21 13:48] LABS: ALT (SGPT) Less than 7 U/L (Less than 34); AST (SGOT) 17 U/L (11-34); Albumin 3.1 g/dL (3.1-4.5); Alkaline Phosphatase 130 U/L (40-110); Anion Gap 10 mmol/L (10-20); BUN (Urea Nitrogen) 32 mg/dL (9.8-20.1); Bilirubin, Total 0.3 mg/dL (0.3-1.2); Calc. Creatinine Clearance 0 mL/min (70-130); Calcium 10.6 mg/dL (7.8-10.44); Carbon Dioxide 37 mmol/L (23-31); Chloride 100 mmol/L (98-107); Globulin 4.3 g/dL (2.4-3.5); Glucose 112 mg/dL (83-110); Potassium 4.1 mmol/L (3.5-5.1); Sodium 143 mmol/L (136-145)
[2025-10-21 13:57] LABS: #Basophils Less than 0.03 10x3/uL (0.0-0.2); #Eosinophils 0.55 10x3/uL (0.0-0.7); #Monocytes 0.49 10x3/uL (0.11-0.59); #Neutrophils 6.38 10x3/uL (1.40-6.50); %Basophils 0.2 % (0.0-1.0); %Eosinophils 5.9 % (0.0-10.0); %Lymphocytes 19.4 % (21.0-51.0); %Monocytes 5.3 % (0.0-10.0); %Neutrophils 68.8 % (42.0-75.0); Hematocrit 28.0 % (36.0-47.0); Hemoglobin 7.6 g/dL (12.0-16.0); Mean Corpuscular Hemoglobin 24.4 pg (27.0-31.0); Mean Corpuscular Volume 90.0 fL (78.0-98.0); Platelet Count 252 10x3/uL (130-400); Red Blood Cell (RBC) Count 3.11 mill/uL (4.20-5.40); White Blood Cell (WBC) Count 9.28 10x3/uL (4.8-10.8)
[2025-10-21 15:23] LABS: Anisocytosis SLIGHT = 6-15 cells HPF (0-5); Macrocytosis SLIGHT = 6-15 cells HPF (0-5); Ovalocytes SLIGHT = 2-5 cells HPF (0-1); Platelet Adequacy Comment Platelets Normal; Polychromasia SLIGHT = 2-3 cells HPF (0-2); Target Cells SLIGHT = 2-5 cells HPF (0-1)
== END 2025-10-21 16:28 ==
LOC: ERS 11:47
DX: D64.9 Anemia, unspecified (principal); I10 Essential (primary) hypertension
CPT/HCPCS: 80053; 85025; 86850; 86900; 86901; 99284